=== PATIENT | male | born 1955 | race Caucasian/White ===

== ENCOUNTER 2017-02-24 12:38 | Emergency (ER) | payer BC ==
[~2017-02-24] VITALS: Ht 170.2 cm; Wt 100.0 kg
[2017-02-24 13:35] LABS: HEMATOCRIT 50.4 % (38.0-50.0); MCH 31.8 PG (29.0-34.0); MCHC 35.1 G/DL (30.0-36.0); MCV 90.5 FL (86-99); MEAN PLAT.VOLUME 10.3 uM^3 (9.0-12.4); PLATELET COUNT 200 K/uL (156-360); RBC DIS.WIDTH-SD 45.3 % (39-53); RED BLOOD COUNT 5.57 M/uL (4.00-5.50); WHITE BLOOD COUNT 7.1 K/uL (4.1-10.2)
[2017-02-24] MEDS ORDERED: LIBRIUM25 MG PO (13:49)
[2017-02-24 14:10] LABS: CHLORIDE 104 mEq/L (99-109); POTASSIUM 4.3 mEq/L (3.7-5.4); SODIUM 143 mEq/L (136-147)
[2017-02-24 14:11] LABS: MAGNESIUM 2.3 mg/dL (1.3-2.7)
[2017-02-24 14:12] LABS: GLUCOSE 96 mg/dL (70-99)
[2017-02-24 14:13] LABS: ANION GAP 15 MEQ/L (2-14)
[2017-02-24 14:16] LABS: GFR ESTIMATE (CALCULATED) > 59 mL/min/ (58.99-99999); UREA NITROGEN (BUN) 14 mg/dL (9-23)
[2017-02-24 14:30] VITALS: BP 163/104
== END 2017-02-24 14:32 | disposition home or self-care (01) ==
LOC: EME 12:38
PROVIDERS: Emergency Medicine
DX: F10.10 Alcohol abuse, uncomplicated (principal)
CPT/HCPCS: 80048; 83735; 85027; 99281; 99284; J7030